=== PATIENT | male | born 1955 | race Caucasian/White ===

== ENCOUNTER 2021-09-24 13:12 | Emergency (ER) | payer MEDICARE, SELFPAY ==
[2021-09-24 13:30] VITALS: BP 126/69; PULSE 64; RESP 20; TEMP 36.9; O2SAT 97
--- NOTE | 2021-09-24 13:32 | ED.MALEGU ---
HPI - Male Genitourinary General Chief complaint: Urogenital-Male Stated complaint: Urianry Problem Time Seen by Provider: 09/24/21 13:33 Source: patient, RN notes reviewed and old records reviewed Mode of arrival: ambulatory Limitations: no limitations History of Present Illness HPI Narrative: 65-year-old male presents to [facility] care with complaints of urinary urgency, frequency, burning with urination for the past 2 days and left lower back pain for 1 week duration, Patient states that his PCP had ordered him some Levaquin for similar symptoms on September 05 for 10 days which did help the symptoms for a little while. Patient states that he was up all night last night urinating. He reports that he does have enlarged prostate and he has had prostatitis in the past. He states that his urine culture from his doctor was negative for infection.Patient denies any penial discharge or any concern for STD exposure. MD Complaint: dysuria Onset (ago): week(s) (1) Related Data Home Medications Medication Instructions Recorded Confirmed Multi Vitamin 09/24/21 Allergies Allergy/AdvReac Type Severity Reaction Status Date / Time No Known Allergies Allergy Verified 09/24/21 13:43 Review of Systems Review of Systems: CONSTITUTIONAL: Denies fever, chills, or sweats. EYES: Denies visual changes, redness, or discharge. ENT: Denies rhinorrhea, congestion, sore throat, or otalgia. CARDIOVASCULAR: Denies chest pain, palpitations, or edema. RESPIRATORY: Denies cough or dyspnea. GASTROINTESTINAL: Denies abdominal pain, nausea, vomiting, or diarrhea. GENITOURINARY: Positive for dysuria no hematuria. frequency and urgency with urination SKIN: Denies rash or itching. MUSCULOSKELETAL: positive for left lower back pain, no joint pain, or myalgia. NEUROLOGIC: Denies headache, numbness, or weakness. PSYCHIATRIC: Denies anxiety or depression. All systems reviewed & are unremarkable except as noted in HPI and below PMFSH Past Medical History Medical History (Updated 09/26/21 @ 09:14 by Tawanna Ivy NP) Enlarged prostate Fusion of spine, cervical region Surgical History Surgical History (Updated 09/26/21 @ 09:07 by Tawanna Ivy NP) H/O shoulder surgery left History of appendectomy History of arthroscopy of both knees Social History Social History (Updated 09/26/21 @ 09:04 by Tawanna Ivy NP) Smoking status: Never smoker Alcohol intake: current Alcohol use details: rare social Substance use: never Living arrangements: with family Gender identity (if verbalized by the patient): Male Comments At time of signature, agree with nursing past medical, surgical, social and family history. There is no relevant family history pertinent to the presenting complaint Exam Narrative: GENERAL: Well-appearing, well-nourished, and in no acute distress., afebrile HEAD: Normocephalic, atraumatic. EYES: PERRLA and EOMI. ENT: Nares clear, no rhinorrhea or epistaxis. Mucous membranes moist.TM's normal with good light reflex, throat pink with no lesions or exudates, no tonsil swelling. NECK: Supple.no lymphadenopathy CHEST: Clear to auscultation. No respiratory distress.SAO2 97% on room air HEART: Regular rate and rhythm. No murmur heard. Normal peripheral pulses ABDOMEN: Soft, nontender, nondistended, normal active bowel sounds. EXTREMITIES: Normal range of motion. No edema.left lower back discomfort non radiating to legs, tender to palpation SKIN: Warm, dry, no rash. NEURO: No focal deficits. Alert and oriented x3. Course Course Level of Care: Express Care Visit Vital Signs Vital signs: Vital Signs Temperature 36.9 C 09/24/21 13:30 Pulse Rate 64 09/24/21 13:30 Respiratory Rate 20 09/24/21 13:30 Blood Pressure 126/69 09/24/21 13:30 Pulse Oximetry 97 09/24/21 13:30 Oxygen Delivery Room Air 09/24/21 13:30 Temperature 36.9 C 09/24/21 13:30 Pulse Rate 64 09/24/21 13:30 Respiratory Rate 2
== END 2021-09-24 14:19 | disposition home or self-care (01) ==
PROVIDERS: Emergency Provider Registered Nurse
DX: N41.0 Acute prostatitis (principal); N40.0 Benign prostatic hyperplasia without lower urinary tract symptoms
CPT/HCPCS: 81003; 99213; G0463